=== PATIENT | male | born 1965 | race Caucasian/White ===

== ENCOUNTER 2017-07-03 16:57 | Emergency (ER) | payer BC ==
[2017-07-03 18:53] VITALS: BP 130/84
--- NOTE | 2017-07-03 19:06 | UC ---
Throat Pain/Nasal Henry HPI - HPI Summary HPI Summary: Pt presents with 4 days of congestion, frontal headache, PND ears "full" and sore throat. Pt states painful swallowing. Pt reports tactile temp. Pt has taken APAP with little improvement. Pt has taken benadryl without relief. Pt denies rash. No sick contact. Pt states teeth ache last night No eye pain. No vision changes Pt's medications reviewed this visit. - History of Current Complaint Chief Complaint: UCGeneralIllness Stated Complaint: SORE THROAT Time Seen by Provider: 07/03/17 18:46 Hx Obtained From: Patient Onset/Duration: Gradual Onset Severity: Moderate Pain Intensity: 8 Pain Scale Used: 0-10 Numeric Cough: Nonproductive Associated Signs & Symptoms: Positive: Fever - Allergies/Home Medications Allergies/Adverse Reactions: Allergies Allergy/AdvReac Type Severity Reaction Status Date / Time No Known Allergies Allergy Verified 07/03/17 18:52 PMH/Surg Hx/FS Hx/Imm Hx Previously Healthy: Yes Other History Of: Negative For: HIV, Hepatitis B, Hepatitis C, Anticoagulant Therapy - Surgical History Surgical History: None - Family History Known Family History: Positive: Hypertension, Diabetes Negative: Cardiac Disease, Respiratory Disease - Social History Occupation: Employed Full-time - law enforcement Lives: With Family Alcohol Use: Occasionally Substance Use Type: None Smoking Status (MU): Never Smoked Tobacco Review of Systems Constitutional: Fever Eyes: Negative ENT: Negative, Sore Throat, Nasal Discharge, Sinus Congestion, Sinus Pain/ Tenderness Respiratory: Cough All Other Systems Reviewed And Are Negative: Yes Physical Exam Triage Information Reviewed: Yes Appearance: Well-Appearing, No Pain Distress, Well-Nourished Vital Signs: Initial Vital Signs Temp 98.1 F 07/03/17 18:49 Pulse 78 07/03/17 18:49 Resp 16 07/03/17 18:49 BP 130/84 07/03/17 18:49 Pulse Ox 99 07/03/17 18:49 Vital Signs Reviewed: Yes Eye Exam: Normal Eyes: Positive: Conjunctiva Clear ENT: Positive: Nasal congestion, TMs normal, Sinus tenderness, Uvula midline - + max sinus R>L + frontal sinus No TMJ pain, Other - right TM + fluid, no erythema turbinates inflammed + PND uvula midline + erythema, no exudate Dental Exam: Normal Neck exam: Normal Neck: Positive: Supple, Nontender Respiratory Exam: Normal Respiratory: Positive: Chest non-tender, Lungs clear, Normal breath sounds, No respiratory distress, No accessory muscle use Cardiovascular Exam: Normal Cardiovascular: Positive: RRR, No Murmur, Pulses Normal Abdominal Exam: Normal Abdomen Description: Positive: Nontender, No Organomegaly, Soft Bowel Sounds: Positive: Present Musculoskeletal Exam: Normal Musculoskeletal: Positive: Strength Intact Neurological Exam: Normal Neurological: Positive: Alert Psychological Exam: Normal Psychological: Positive: Normal Response To Family Skin Exam: Normal Throat Pain/Nasal Course/Dx - Course Course Of Treatment: Pt presents with progressive body ache, sinus congestion, sore throat and ear fullness. Pt with tactile fever. Pt with sinus pain, thick PND. Will Rx flonase, abx. secretion. motrin/apap. decongestant. return precautions - Differential Dx/Diagnosis Provider Diagnoses: sinusitis Discharge - Sign-Out/Discharge Documenting (check all that apply): Discharge - Discharge Plan Condition: Stable Disposition: HOME Prescriptions: Amoxicillin PO (*) [Amoxicillin 875 MG (*)] 875 mg PO BID #10 tab Fluticasone NASAL SPRAY 50MCG* [Flonase NASAL SPRAY 50MCG*] 2 spray BOTH NARES DAILY #1 btl Patient Education Materials: Sinusitis (ED) Referrals: Edward Hansen MD [Primary Care Provider] - Additional Instructions: - Stay well hydrated. Drink plenty of non-alcoholic, non-caffinated beverages. - Alternate ibuprofen (Advil, Motrin) 600mg and Tylenol every 3 hours for pain or fever. Take with food. Do NOT take for more than 4-5 days. -cold foods (popsicle, jello, apple sauce) may be soothing to your throat - okay to gargle and spit with warm salt water, 2-3 times a day - These infections are spread by secretions - do NOT share eating or drinking utensils - clean items you share with other people such as cell phones, computer mouse, TV remote, computer tablets, etc. After you have taken antibiotics for 3 days, change your toothbrush and your pillowcase. - use nasal spray as prescribed - it is recommended you take over the counter decongestant - get plenty of restful sleep - humidify the air in the room where you sleep - boil water, run a hot steam shower, vaporizer, cups of water by heat register - okay to take over the counter decongestant and cough medication - contact your doctor, return here, or go to the emergency department with questions or concerns - Billing Disposition and Condition Condition: STABLE Disposition: HOME
== END 2017-07-03 19:25 | disposition home or self-care (01) ==
LOC: UCCORT 16:57
DX: J32.9 Chronic sinusitis, unspecified (principal)
CPT/HCPCS: 87651; 99212; G0463